=== PATIENT | male | born 1965 | race Caucasian/White ===

== ENCOUNTER → 2016-05-18 | Outpatient (CLI) | payer BC ==
[~2016-05-18] VITALS: Ht 172.7 cm; Wt 147.4 kg
[~2016-05-18] MED LIST: AMBIEN 10MG10 MG PO; AMBIEN5 MG PO; COUMADIN 1010 MG/TAB PO; COUMADIN 77.5 MG/TAB PO; COUMADIN5 MG PO; ELIQUIS 2.5 PO; ESCITALOPRAM; LEXAPRO 10MG10 MG PO; LISINOPRIL; LOPRESSOR 225 MG/TAB PO; LOPURIN100 MG PO; LOVENOX120 MG/0.8 SC; PRINIVIL20 MG PO; ZYLOPRIM 100MG100 MG PO
[2016-05-18 15:21] VITALS: BP 143/88; PULSE 68
[2016-05-18 15:47] VITALS: BP 143/88; PULSE 68
== END ==
LOC: LIGHT 04-20 12:02
DX: I10 Essential (primary) hypertension (principal); E78.4 Other hyperlipidemia; F32.89 Other specified depressive episodes; E66.01 Morbid (severe) obesity due to excess calories; Z68.42 Body mass index [BMI] 45.0-49.9, adult

== ENCOUNTER → 2019-10-03 | Outpatient (CLI) | payer BC | LOC: COL.VAS 12:25 | DX: N18.4 Chronic kidney disease, stage 4 (severe) (principal) ==